=== PATIENT | male | born 1970 | race Caucasian/White ===

== ENCOUNTER → 2017-09-02 | Outpatient (CLI) | payer BC | END | disposition home or self-care (01) | LOC: C.LAB1850 13:45 | PROVIDERS: ATTEND Internal Medicine Endocrinology, Diabetes & Metabolism | DX: E06.3 Autoimmune thyroiditis (principal); E03.9 Hypothyroidism, unspecified ==

== ENCOUNTER 2019-09-11 17:29 | Inpatient (IN) ==
[2019-09-11] MEDS ORDERED: ONDANSETRON INJ 2 MG/ML 2 ML VIAL IV STA (18:00)
[2019-09-11] MEDS ORDERED: CYCLOBENZAPRINE HCL 10 MG TAB PO STA (18:00)
[2019-09-11] MEDS ORDERED: DEXAMETHASONE **PF** INJ 10 MG/ML VIAL IV ONE (18:00)
[2019-09-11] MEDS ORDERED: KETOROLAC TROMETHAMINE 15 MG/ML VIAL IV STA (18:00)
[2019-09-11] MEDS ORDERED: ACETAMINOPHEN 500 MG TAB PO STA (18:01)
--- NOTE | 2019-09-11 18:07 | Emergency Department Note ---
Impression & Plan Low back pain radiating to left leg, Hip pain, left, Lumbar disc herniation ED Provider Note NAME: MI JUNE AGE: 48 SEX: M : 1970 ARRIVES VIA: Walk-In INFORMANT: [Patient] ED PROVIDER(S): [Gwyn Figueroa MD] CHIEF COMPLAINT: Back and hip pain. HISTORY OF PRESENT ILLNESS: The patient is a 48-year-old male who presents with about 24 or so hours of left back and left hip pain. The pain is a 10/10 when he attempts to walk. The patient states standing straight also makes the pain worse. Sitting still and hunching forward makes the pain better. The patient denies any numbness or tingling in the leg. He has no difficulty urinating or moving his bowels. There has been no fever, chills, cough or congestion. Patient states that he has known disc disease at L3 and L4 but mostly of the time, his pain is on the right. He received his third lumbar injection just 6 days ago. He is scheduled to see a surgeon in a month or so. The patient admits to taking a bike ride yesterday, initially after the ride he felt fine, 3 hours later the left back and hip pain began. He has been trying Aleve and ibuprofen for the pain without relief. The patient is concerned that something changed suddenly and that he may now in fact need surgery. Of note, the patient does not have any weakness in the leg, he just has the pain. He is currently on gabapentin for his back issues and right hip pain. The patient states that he has used steroids in the past with some relief. REVIEW OF SYSTEMS: See HPI for pertinent positives and negatives. A total of ten systems were reviewed and were otherwise negative. PMHx/PSHx: See Below SOCIAL HISTORY: See Below. PHYSICAL EXAM: GENERAL: Patient is in no acute distress. HEENT: No acute trauma, normocephalic atraumatic, mucous membranes moist, no nasal congestion, no scleral icterus. NECK: No stridor, no adenopathy, no meningismus, trachea is midline. LUNGS: Clear to auscultation bilaterally, no wheeze, no rhonchi, breath sounds equal. HEART: Without murmurs gallops or rubs, regular rate and rhythm. ABDOMEN: Soft, nontender, bowel sounds positive, no hernias, no peritonitis. EXTREMITIES: No cyanosis or edema, full range of motion of all the joints without pain or difficulty, no signs for acute trauma. NEUROLOGIC: Oriented x 3, no acute motor or sensory deficits, no focal weakness. Patient has strong great toe strength bilaterally. He has equal and strong bilateral plantar flexion. He has 2/4 reflexes of the right Achilles and patella. The left Achilles has a 2/4 reflex. I cannot elicit any left patellar reflex. SKIN: No rash, no jaundice, no diaphoresis. DIFFERENTIAL DIAGNOSIS: Musculoskeletal, disc herniation, fracture, metastatic disease, cord compress ion, discitis, sciatica, cauda equina, infection, aortic disease, renal colic, gastrointestinal, as well as other pathologies. EMERGENCY DEPARTMENT COURSE/PROCEDURES: MEDICAL DECISION MAKING: The patient presents with left lower back pain and left hip pain. He did not have a left patellar reflex. The patient was quite uncomfortable. The patient was given IV Tylenol, oral Flexeril, IV Decadron, IV Toradol, IV morphine and IV Zofran. He was eventually given IV Dilaudid. It was a very hard to control his pain. An MRI of the lumbar spine was done, there was a very large disc herniation on the left that was thought to be the cause of his pain. The herniation was at the level of L4-L5. I did speak with the back surgeon financial institution branch manager. The patient is going to be hospitalized for pain control and potentially undergo an operation within the next 24 hours. Emergent intervention this evening was not felt warranted. I spoke to the patient about his findings, he did consent to a hospital stay and surgical consult. He is currently more comfortable than when he arrived. I spoke to case management, the on-call hospitalist has been consulted. Basic laboratory testing was ordered. There was no leukocytosis or anemia, no significant electrolyte abnormality or kidney failure. Past Med/Surg History Medical History Lower back pain Social History Preferred Language: Indonesian Communication Ability: Effective Chip Bin Operator Required: No Beliefs That Will Affect Care: None Current Living Situation: Family Other Information That Helps Us Care for You: No Feels Safe at Home: Yes Safety Concerns: Feels Safe At This Time Smoking Status: Never smoker Hx Alcohol Use: Yes Alcohol type: beer Hx Substance Use: No Allergies Allergies Allergy/AdvReac Type Severity Reaction Status Date / Time No Known Allergies Allergy Verified 09/11/19 18:53 Home Meds Home Medications Medication Instructions Recorded Confirmed gabapentin 300 mg PO AMHS 09/11/19 09/11/19 Results & Data (ED) Vital Signs Vital Signs - 24 hr 09/11/19 17:31 09/11/19 19:11 09/11/19 20:17 Temperature 36.7 C Temperature Source Oral Pulse Rate 81 Pulse Rate [Finger] 80 89 Pulse Rhythm Regular Pulse Strength Normal Respiratory Rate 16 16 18 Respiratory Effort / Characteristics Non-Labored Non-Labored Respiratory Depth Normal Normal Respiratory Pattern Regular Blood Pressure 154/83 H Blood Pressure [Right Arm] 143/83 H 165/101 H Blood Pressure Mean 106 Blood Pressure Mean [Right Arm] 103 122 Blood Pressure Position Sitting Pulse Oximetry 100 98 98 Oxygen Delivery Method Room Air Room Air Room Air Sepsis Recent Fever Within 48 Hours No Sepsis New/Unexplained Change in Mental Status No Sepsis Action Taken by Nursing No Action Required Home Medications Current Medication List: was personally reviewed by me Laboratory Data Attestation: I reviewed the patient's lab results. Result diagrams: 09/11/19 21:14 09/11/19 21:14 Lab Results 09/11/19 09/11/19 Range/Units 21:14 21:14 WBC 7.57 (4.8-10.8) K/uL RBC 5.21 (4.7-6.1) M/uL Hgb 15.5 (14.0-18.0) g/dL Hct 46.3 (42-52) % MCV 88.9 (80-100) fL MCH 29.8 (25-34) pg MCHC 33.5 (32-36) g/dL RDW Std Deviation 50.0 H (36.4-46.3) fL RDW Coeff of Griselda 15.3 H (11.5-14.5) % Plt Count 217 (130-400) K/uL MPV 9.1 (7.4-10.4) fL Sodium 141 (136-145) mmol/L Potassium 4.3 (3.5-5.1) mmol/L Chloride 106 (98-107) mmol/L Carbon Dioxide 27 (21-32) mmol/L Anion Gap 8.0 (3-11) BUN 22 H (7-18) mg/dl Creatinine 1.18 (0.6-1.4) mg/dl Est Cr Clr Drug Dosing Not Reportable Est GFR ( Amer) 82.9 Est GFR (Non-Af Amer) 71.5 BUN/Creatinine Ratio 18.3 (10-20) Glucose 101 H (70-99) mg/dl Calcium 8.9 (8.5-10.1) mg/dl Administered Medications Hydromorphone HCl (Dilaudid) 0.5 mg IV Q3H PRN PRN Reason: Pain Stop: 09/25/19 22:24 Last Admin: 09/11/19 22:52 Dose: 0.5 mg Documented by: [id number] Sodium Chloride (Nss 1000ml) 1,000 mls @ 125 mls/hr IV .Q8H LINDA Stop: 10/11/19 22:24 Last Admin: 09/11/19 22:40 Dose: 125 mls/hr Documented by: [id number] Discontinued Medications Acetaminophen (Tylenol) 1,000 mg PO NOW STA Stop: 09/11/19 18:02 Last Admin: 09/11/19 18:12 Dose: 1,000 mg Documented by: [id number] Cyclobenzaprine HCl (Flexeril) 10 mg PO NOW STA Stop: 09/11/19 18:01 Last Admin: 09/11/19 18:13 Dose: 10 mg Documented by: [id number] Dexamethasone Sodium Phosphate (Decadron Pf) 10 mg IV NOW ONE Stop: 09/11/19 18:01 Last Admin: 09/11/19 18:18 Dose: 10 mg Documented by: [id number] Hydromorphone HCl (Dilaudid) 1 mg IV NOW STA Stop: 09/11/19 19:29 Last Admin: 09/11/19 19:42 Dose: 1 mg Documented by: [id number] Ketorolac Tromethamine (Toradol) 15 mg IV NOW STA Stop: 09/11/19 18:01 Last Admin: 09/11/19 18:18 Dose: 15 mg Documented by: [id number] Morphine Sulfate (Morphine Sulfate) 4 mg IV Q30M PRN PRN Reason: Pain Stop: 09/25/19 17:59 Last Admin: 09/11/19 22:12 Dose: 4 mg Documented by: [id number] Admin: 09/11/19 19:12 Dose: 4 mg Documented by: [id number] Admin: 09/11/19 18:23 Dose: 4 mg Documented by: [id number] Ondansetron HCl (Zofran) 4 mg IV NOW STA Stop: 09/11/19 18:01 Last Admin: 09/11/19 18:13 Dose: 4 mg Documented by: [id number] Imaging Data Radiologist's Impression: MR lumbar spine wo con CLINICAL HISTORY: 48 years-old Male with left hip and leg pain, lost knee reflex. Acute low back pain with radiation into the left lower extremity. No reported trauma. COMPARISON: None. TECHNIQUE: Multiplanar, multi sequence MRI of the lumbar spine was performed without intravenous contrast. FINDINGS: Study is motion degraded. No aortic aneurysm or adenopathy. Paraspinal tissues are unremarkable. Clutch Specialist localizer images demonstrate no gross extra spinal abnormality. 18 degrees levoscoliosis measured from L2-L4. 8 mm anterolisthesis L3 on L4. Chronic appearing right L3 pars defect, image 8 series 5. No definitive left-sided pars defects identified. No acute fracture, subluxation, bone marrow or soft tissue edema. Moderate left facet effusion at L3-L4. Signal within the imaged thoracic spinal cord is unremarkable. Conus medullaris terminates at T12-L1. Cauda equina appears unremarkable. Minimal endplate edema at L3-L4 suggest Modic type I endplate degeneration. T12-L1: Moderate facet arthrosis. No central canal or foraminal narrowing. L1-L2: Mild disc space narrowing with spondylitic spurring, small posterior annular disc bulge with moderate facet arthrosis and ligamentum flavum thickening. No central canal or foraminal narrowing. L2-L3: Mild disc space narrowing with spondylitic spurring, circumferential annular disc bulge with moderate facet arthrosis and ligamentum flavum thickening. Flattening of the ventral thecal sac without significant central canal stenosis. Neuroforamina are generally patent. L3-L4: Mild to moderate disc space narrowing with spondylitic spurring and anterolisthesis as above. Circumferential annular disc bulge with posterior disc uncovering. There is a central annular fissure with small central disc protrusion. Moderate facet arthrosis with ligamentum flavum thickening and moderate left facet effusion. Severe central canal stenosis, AP dimension of the thecal sac measuring 5 mm. Severe narrowing of the lateral recesses, right greater than left. Severe right foraminal narrowing with mild to moderate left foraminal stenosis. L4-L5: Mild spondylitic spurring with small posterior annular disc bulge, mode rate to severe facet arthrosis with ligamentum flavum thickening. Left foraminal/extraforaminal annular fissure with disc protrusion measuring up to 1.5 cm transversely, image 23 series 8. Central canal is patent. Mild to moderate right and moderate left foraminal narrowing. Edema is noted within the left neuroforamen. L5-S1: Spondylitic spurring with small circumferential annular disc bulge, li gament of flavum thickening with severe facet arthrosis and trace facet effusions. Small central disc protrusion. Central canal is patent. Mild foraminal narrowing present bilaterally. IMPRESSION: 1. Motion degraded exam. 2. No acute fracture, or subluxation. 3. Remote appearing right-sided L3 pars defect with 8 mm anterolisthesis L3 on L4. Additionally, combination of discogenic degeneration and facet arthrosis at this interspace contributes to severe central canal stenosis with severe right and mild to moderate left foraminal narrowing. 4. Left foraminal/extraforaminal annular fissure and disc protrusion at L4-L5 is noted with adjacent soft tissue edema suggestive of acute inflammation. This results in mild to moderate right and moderate left foraminal narrowing. 5. 18 degrees levoscoliosis measured from L2-L4. Blood Pressure Blood Pressure Findings: Elevated blood pressure Blood Pressure Disposition: further management by hospitalist Discharge Plan Visit Data *Final* Discharge Date/Time: 09/11/19 22:14 Chief Complaint: Hip Pain Stated Complaint: PAIN SHOOTING INTO HIP, CANT PUT PRESSURE ON LEGS ED Provider: Gwyn Figueroa Discharge Problem: Low back pain radiating to left leg, Hip pain, left, Lumbar disc herniation Patient Disposition: Admitted As Inpatient Condition: Good Discharge Instructions Interventions: ED Discharge Assessment Last Done: 09/11/19 22:14
[2019-09-11] MEDS: MoRPHine SULFATE 4 MG/ML 1 ML CARP\\VIAL IV PRN ×3 (18:23→22:12)
[2019-09-11] MEDS ORDERED: HYDROmorphone INJ 1 MG/ML SYRINGE IV STA (19:28)
--- NOTE | 2019-09-11 20:38 | Magnetic Resonance Report ---
MR lumbar spine wo con CLINICAL HISTORY: 48 years-old Male with left hip and leg pain, lost knee reflex. Acute low back angelica n with radiation into the left lower extremity. No reported trauma. COMPARISON: None. TECHNIQUE: Multiplanar, multi sequence MRI of the lumbar spine was performed without intravenous cont rast. FINDINGS: Study is motion degraded. No aortic aneurysm or adenopathy. Paraspinal tissues are unremarkable. Scou t localizer images demonstrate no gross extra spinal abnormality. 18 degrees levoscoliosis measured f rom L2-L4. 8 mm anterolisthesis L3 on L4. Chronic appearing right L3 pars defect, image 8 series 5. N o definitive left-sided pars defects identified. No acute fracture, subluxation, bone marrow or soft tissue edema. Moderate left facet effusion at L3-L4. Signal within the imaged thoracic spinal cord is unremarkable. Conus medullaris terminates at T12-L1. Cauda equina appears unremarkable. Minimal endp late edema at L3-L4 suggest Modic type I endplate degeneration. T12-L1: Moderate facet arthrosis. No central canal or foraminal narrowing. L1-L2: Mild disc space narrowing with spondylitic spurring, small posterior annular disc bulge with moderate facet arthrosis and ligamentum flavum thickening. No central canal or foraminal narrowing. L2-L3: Mild disc space narrowing with spondylitic spurring, circumferential annular disc bulge with moderate facet arthrosis and ligamentum flavum thickening. Flattening of the ventral thecal sac witho ut significant central canal stenosis. Neuroforamina are generally patent. L3-L4: Mild to moderate disc space narrowing with spondylitic spurring and anterolisthesis as above. Circumferential annular disc bulge with posterior disc uncovering. There is a central annular fissur e with small central disc protrusion. Moderate facet arthrosis with ligamentum flavum thickening and moderate left facet effusion. Severe central canal stenosis, AP dimension of the thecal sac measuring 5 mm. Severe narrowing of the lateral recesses, right greater than left. Severe right foraminal narr owing with mild to moderate left foraminal stenosis. L4-L5: Mild spondylitic spurring with small posterior annular disc bulge, moderate to severe facet a rthrosis with ligamentum flavum thickening. Left foraminal/extraforaminal annular fissure with disc p rotrusion measuring up to 1.5 cm transversely, image 23 series 8. Central canal is patent. Mild to mo derate right and moderate left foraminal narrowing. Edema is noted within the left neuroforamen. L5-S1: Spondylitic spurring with small circumferential annular disc bulge, ligament of flavum thicke sohail with severe facet arthrosis and trace facet effusions. Small central disc protrusion. Central ca nal is patent. Mild foraminal narrowing present bilaterally. IMPRESSION: 1. Motion degraded exam. 2. No acute fracture, or subluxation. 3. Remote appearing right-sided L3 pars defect with 8 mm anterolisthesis L3 on L4. Additionally, comb ination of discogenic degeneration and facet arthrosis at this interspace contributes to severe centr al canal stenosis with severe right and mild to moderate left foraminal narrowing. 4. Left foraminal/extraforaminal annular fissure and disc protrusion at L4-L5 is noted with adjacent soft tissue edema suggestive of acute inflammation. This results in mild to moderate right and modera te left foraminal narrowing. 5. 18 degrees levoscoliosis measured from L2-L4. ACT 112: Negative or not required by law. The above report was generated using voice recognition software. It may contain grammatical, syntax o r spelling errors. Electronically signed by: Raul Chan M.D. 09/11/2019 8:37 PM
[2019-09-11 21:28] LABS: Hematocrit (blood only) 46.3 % (42-52); Hemoglobin 15.5 g/dL (14.0-18.0); Mean Corpuscular Hemoglobin 29.8 pg (25-34); Mean Corpuscular Hgb Conc 33.5 g/dL (32-36); Mean Corpuscular Volume 88.9 fL (80-100); Mean Platelet Volume 9.1 fL (7.4-10.4); Platelet Count 217 K/uL (130-400); RDW Coefficient of Variation 15.3 % (11.5-14.5); Red Blood Count 5.21 M/uL (4.7-6.1); White Blood Count 7.57 K/uL (4.8-10.8)
[2019-09-11 21:58] LABS: BUN Creatinine Ratio 18.3 (10-20); Blood Urea Nitrogen 22 mg/dl (7-18); Calcium 8.9 mg/dl (8.5-10.1); Carbon Dioxide 27 mmol/L (21-32); Chloride 106 mmol/L (98-107); Est GFR (African American) 82.9; Est GFR (Non-African American) 71.5; Glucose 101 mg/dl (70-99); Potassium 4.3 mmol/L (3.5-5.1); Sodium 141 mmol/L (136-145)
--- NOTE | 2019-09-11 22:17 | History and Physical Report ---
DATE OF ADMISSION: 09/11/2019 CHIEF COMPLAINT: Severe back pain. HISTORY OF PRESENT ILLNESS: This is a 48-year-old male with no significant past medical history except for chronic back pain, lumbar stenosis and since April he has also had 4-5 steroid shots because of back pain mostly radiating to the right side. After biking yesterday, the pain started to radiate to the left side. Last steroid was last Thursday.But this time the pain was more on the left leg and he is not able to put weight on the leg and he is not able to lie down straight, so he came to the ER and lumbar spine MRI was done which shows remote appearing right sided L3 pars defect with 8 mm anterolisthesis L3 and L4 with severe central canal stenosis, severe right and mid mild to moderate left foraminal narrowing and also disc protrusion at L4-L5. The patient required significant pain medication in the ER.Denies any other complaints. No headache, no dizziness, no blurred vision, no earache, no runny nose, no sore throat, no dysphagia, no cough. Appetite is okay and was not sleeping well since yesterday night because of his pain. No fever, no chills, no cough, no chest pain, no shortness of breath, no nausea, no abdominal pain. Normal bowel and bladder movements. No incontinence of bowel and bladder. No hematuria, no blood in the stools or black stools. No swelling in the legs, no rash. Hemodynamically stable. ALLERGIES: No known drug allergies. PAST MEDICAL HISTORY: As mentioned above. PAST SURGICAL HISTORY: Appendectomy, cholecystectomy, colectomy for diverticulitis, knee surgeries. MEDICATIONS: Currently on gabapentin 300 mg p.o. b.i.d. FAMILY HISTORY: Mother had high blood pressure, father was diagnosed with diabetes in his old age. SOCIAL HISTORY: No smoking history. No alcohol, no drug use. Lives with his . REVIEW OF SYMPTOMS: As per HPI. Rest of review of systems negative. PHYSICAL EXAMINATION: GENERAL: The patient is of moderate build, not in acute distress. VITAL SIGNS: Temperature 36.7, pulse 89, respiratory rate 18, blood pressure 165/101, oxygen 98% room air. HEENT: No pallor, no icterus. Pupils equal, round, and reactive to light. Oral mucosa moist. NECK: Supple. No neck masses seen. CARDIOVASCULAR: S1, S2 heard, regular rate and rhythm, no murmur, no gallop. RESPIRATORY SYSTEM: Normal AP diameter. No accessory muscle use. No wheezing, no crackles. ABDOMEN: Soft, bowel sounds present. Nontender. No distention. CENTRAL NERVOUS SYSTEM: Alert and oriented. Obeys simple commands. Moves extremities. EXTREMITIES: No edema, no erythema. MUSCULOSKELETAL: Left leg straight leg test positive. LABORATORY DATA: WBC 7.5, hemoglobin 15.5, hematocrit 46.3, platelets 217. Electrolytes pending. Lumbar spine MRI, no acute fracture or subluxation, remote appearing right side L3 pars defect with 8 mm anterolisthesis of L3 and L4, severe central canal stenosis with severe right and mild to moderate left foraminal narrowing, left extraforaminal annular fissure and disc protrusion at L4-L5 is noted with adjacent soft tissue edema suggestive of acute inflammation. This results in mild to moderate right and moderate left foraminal narrowing, 18-degree levoscoliosis measured from L2-L4. ASSESSMENT AND PLAN: This is a 48-year-old male who presents with severe back pain and found to have acute L4-L5 disc protrusion. 1. Severe back pain, ambulatory dysfunction, unable to lie flat, not able to put weight on left leg. MRI showing acute L4-L5 disc protrusion with acute inflammation. Received dexamethasone, cyclobenzaprine, morphine, ketorolac and Dilaudid in the ER. ER physician talked to orthopedics. There is plan for consideration of surgery tomorrow. We will admit the patient to medical floor. Keep him n.p.o., IV fluids, IV Dilaudid p.r.n. We will get a preoperative EKG and chest x-ray and follow the electrolytes. If labs, EKG and chest x-ray are okay, patient will be at acceptable risk for any procedure. Continue his home gabapentin. 2. Deep venous thrombosis prophylaxis, sequential compression devices for now. 3. Disposition: Observation in medical floor. Expect to discharge home and follow with family doctor. PT and OT prior to discharge. Social Service to help with discharge planning. CODE STATUS: Full code. MTDD
[2019-09-11] MEDS ORDERED: HYDROmorphone INJ 0.5 MG/0.5 ML SYR IV PRN (22:25)
[2019-09-11] MEDS ORDERED: ONDANSETRON INJ 2 MG/ML 2 ML VIAL IV PRN (22:25)
[2019-09-11] MEDS ORDERED: POLYETHYLENE (MIRALAX) 17 GM PACK PO PRN (22:25)
[2019-09-11] MEDS: SODIUM CHLORIDE 0.9% 1000ML 1,000 ML IV SCH (22:40)
--- NOTE | 2019-09-11 22:47 | XRay Report ---
XR chest 1V portable HISTORY: 48 years-old Male pre op preoperative exam. No acute chest complaints COMPARISON: MRI lumbar spine of same day TECHNIQUE: AP view of the chest FINDINGS: Cardiomediastinal and hilar silhouettes are within normal limits. No pneumothorax, pleural effusion, airspace consolidation or overt pulmonary edema. Bones of the chest appear grossly intact. IMPRESSION: No acute process. ACT 112: Negative or not required by law. The above report was generated using voice recognition software. It may contain grammatical, syntax o r spelling errors. Electronically signed by: Raul Chan M.D. 09/11/2019 10:46 PM
[2019-09-12] MEDS: HYDROmorphone INJ 1 MG/ML SYRINGE IV PRN ×7 (01:26→21:43)
[2019-09-12] MEDS: ACETAMINOPHEN 325 MG TAB PO PRN ×3 (03:16→19:32)
[2019-09-12 05:59] LABS: Hematocrit (blood only) 43.7 % (42-52); Hemoglobin 14.4 g/dL (14.0-18.0); Immature Granulocytes # (auto) 0.01 K/uL (0.00-0.02); Immature Granulocytes % (auto) 0.1 %; Lymphocytes # (auto) 0.81 K/uL (1.2-3.4); Lymphocytes % (auto) 8.1 %; Mean Corpuscular Hemoglobin 29.3 pg (25-34); Monocytes # (auto) 0.16 K/uL (0.11-0.59); Monocytes % (auto) 1.6 %; Neutrophils # (auto) 9.03 K/uL (1.4-6.5); Neutrophils % (auto) 90.2 %; Platelet Count 200 K/uL (130-400); RDW Coefficient of Variation 15.3 % (11.5-14.5); RDW Standard Deviation 49.4 fL (36.4-46.3); Red Blood Count 4.91 M/uL (4.7-6.1); White Blood Count 10.01 K/uL (4.8-10.8)
[2019-09-12] MEDS: SODIUM CHLORIDE 0.9% 1000ML 1,000 ML IV SCH ×3 (06:33→21:42)
[2019-09-12 06:38] LABS: BUN Creatinine Ratio 19.5 (10-20); Calcium 8.3 mg/dl (8.5-10.1); Est GFR (African American) 89.3; Magnesium 1.9 mg/dl (1.8-2.4); Potassium 4.8 mmol/L (3.5-5.1)
--- NOTE | 2019-09-12 07:54 | Orthopedic Consultation ---
Date of Consultation September 12, 2019 Assessment & Plan (1) Lumbar disc herniation with radiculopathy: At this time the patient has previous issues with L3-L4 stenosis and instability and chronic persistent right leg pain. He now has acute pain involving the left lower extremity secondary to foraminal disc herniation. Secondary to his weakness and significant pain we are recommending urgent lumbar decompression and fusion L3-4 and L4-5 to adequately decompress the nerve roots improve his pain and hopefully avoid permanent strength deficit and neurologic sequela. Risk benefits pros cons and alternatives were outlined in detail. At this time we will try to surgery range performed soon as possible. Present on Admission?: Yes History of Present Illness Reason for Consultation: Severe back and bilateral leg pain with weakness Attending Physician: Jayson Soto MD History of Present Illness This is a 48-year-old male that presents with severe left leg pain. This began Thursday and progressed throughout Thursday. He subsequently came to the emergency room with the inability to ambulate and to be in severe pain. He does have a history of significant right leg pain that he is undergone several epidural injections for in the past. He has a known spondylolisthesis at L3-L4 with neuroforaminal disease. He now has acute left-sided symptoms rating into the buttock and thigh. He is unable to contract his quadricep he is unable to ambulate secondary to the pain. He denies any loss of bowel bladder function. Allergies Allergy/AdvReac Type Severity Reaction Status Date / Time No Known Allergies Allergy Verified 09/11/19 18:53 Home Medications Home Medications Medication Instructions Recorded Confirmed Type gabapentin 300 mg PO AMHS 09/11/19 09/11/19 History Patient History Medical History Lower back pain Social History Preferred Language: Korean Communication Ability: Effective Interface Control Officer Required: No Beliefs That Will Affect Care: None Current Living Situation: Family Other Information That Helps Us Care for You: No Feels Safe at Home: Yes Safety Concerns: Feels Safe At This Time Smoking Status: Never smoker Hx Alcohol Use: Yes Alcohol type: beer Hx Substance Use: No Physical Exam Physical Exam: Patient is alert and oriented Patient is most comfortable sitting and leaning forward. He is in obvious distress. He exhibits significant tension signs with straight leg raising on the left. He has 3/4 left quadriceps with breakaway weakness. Plantar flexion dorsiflexion appears to be symmetric and intact bilateral extremities. He has absent deep tendon reflexes on the left. Sensory is hyperesthetic on the left compared to the right. Heart is regular rate and rhythm Lungs clear to auscultation Results & Data ([facility]) Vital Signs (Past 12 Hours) Vital Signs Temp Pulse Resp BP Pulse Ox 09/11/19 23:00 36.7 C 67 14 118/69 96 09/11/19 22:35 36.8 C 67 16 143/79 H 98 09/11/19 22:20 36.7 C 67 16 143/79 H 98 09/11/19 22:11 79 16 129/75 98 09/11/19 20:17 89 18 165/101 H 98 Diagnostic Findings MRI of the lumbar spine demonstrates evidence of spondylolisthesis with severe central lateral recess stenosis and foraminal disease L3-L4. He has evidence of far lateral disc herniation L4-L5 with displacement of the exiting nerve root on the left. There is obvious annular disruption.
[2019-09-12] MEDS: GABAPENTIN 300 MG CAP PO SCH ×2 (09:01→20:10)
--- NOTE | 2019-09-12 14:26 | Hospitalist Progress Note ---
Date of Service September 12, 2019 Assessment & Plan (1) Lumbar disc herniation with radiculopathy: Has been complaining of low back pain with radiculopathy for a while Has had multiple injections without any improvement as an outpatient MRI did show MRI did show discogenic degeneration and annular fissure with surrounding edema with mild to moderate left and right foraminal narrowing Appreciate Ortho input and recommendation for surgery Denies any significant cardiac or respiratory symptoms with exertion EKG and chest x-ray are unremarkable There is no contraindication for surgery and does not carry any extra risk of the procedure Likely surgery tomorrow (2) Hip pain, left: Has radiculopathy pain around left hip (3) Lumbar disc herniation: As above DVT prophylaxis-as per Ortho CODE STATUS Full Admission and Anticipated Discharge Date Admission Date: September 12, 2019 Subjective 09/12/2019 The patient was seen and examined in medical floor He has been complaining of chronic back pain with radiculopathy He is a status post multiple injection without any improvement He does have significant disc protrusion and will have surgery tomorrow Denies any urine and her bowel problems Review of Systems Review of Systems: All systems reviewed and are unremarkable except as noted below Musculoskeletal: Back pain with radiation around the left buttock and right leg Physical Exam Physical Exam: Lying in bed without any acute symptoms Constitutional: well developed and well nourished; no acute distress and not ill appearing Eyes: PERRL, conjunctivae normal, anicteric sclerae ENMT: external ear and nose normal, oropharynx normal Neck: trachea midline, no thyromegaly Respiratory: normal respiratory effort; no respiratory distress Auscultation: lungs clear to auscultation bilaterally Cardiovascular: Rate/Rhythm: regular rate and regular rhythm Heart Sounds: no murmur Gastrointestinal (Abdomen): Inspection/Auscultation: abdomen normal to inspection and normal bowel sounds Percussion/Palpation: abdomen soft; abdomen nontender Musculoskeletal: No acute arthritis in any joints Lymphatic: no cervical or axillary lymphadenopathy Results & Data Results & Data ([facility]) Vital Signs (Past 12 Hours) Vital Signs Temp Pulse Resp BP Pulse Ox 09/12/19 07:15 36.9 C 77 18 112/74 97 Laboratory Results Short CBC 09/11/19 09/12/19 Range/Units 21:14 05:43 WBC 7.57 10.01 (4.8-10.8) K/uL Hgb 15.5 14.4 (14.0-18.0) g/dL Hct 46.3 43.7 (42-52) % Plt Count 217 200 (130-400) K/uL BMP 09/11/19 09/12/19 21:14 05:43 Sodium 141 141 Potassium 4.3 4.8 Chloride 106 108 H Carbon Dioxide 27 27 BUN 22 H 22 H Creatinine 1.18 1.11 Glucose 101 H 126 H Calcium 8.9 8.3 L Medications Administered Current Inpatient Medications Acetaminophen (Tylenol) 650 mg PO Q4H PRN PRN Reason: pain/fever Stop: 10/11/19 22:24 Last Admin: 09/12/19 09:04 Dose: 650 mg Documented by: Gabapentin (Neurontin) 300 mg PO AMHS LINDA Stop: 10/12/19 08:59 Last Admin: 09/12/19 09:01 Dose: 300 mg Documented by: Hydromorphone HCl (Dilaudid) 1 mg IV Q3H PRN PRN Reason: Pain Stop: 09/26/19 01:20 Last Admin: 09/12/19 11:11 Dose: 1 mg Documented by: Sodium Chloride (Nss 1000ml) 1,000 mls @ 125 mls/hr IV .Q8H LINDA Stop: 10/11/19 22:24 Last Infusion: 09/12/19 06:42 Dose: 125 mls/hr Documented by: Ondansetron HCl (Zofran) 4 mg IV Q6H PRN PRN Reason: Nausea Stop: 10/11/19 22:24 Polyethylene Glycol (Miralax Powder Packet) 17 gm PO DAILY PRN PRN Reason: Constipation Stop: 10/11/19 22:24
--- NOTE | 2019-09-12 15:06 | Anesthesiology Consultation ---
Date of Service September 12, 2019 Assessment & Plan (1) Encounter for pre-operative examination: Chart Review Chart Review: Acceptable Risk for Surgery and Patient NOT seen in Pre Admission Testing Consults Requested none Hospitalist 09/12/2019: There is no contraindication for surgery and does not carry any extra risk of the procedure History Surgery Operation Date: 09/13/19 07:30 Proposed Procedures p L3-L4, L4-L5 Decompression and Fusion - Nafi Quan DO Height/Weight Height: 5 ft 8 in Weight: 76.1 kg Allergies Allergy/AdvReac Type Severity Reaction Status Date / Time No Known Allergies Allergy Verified 09/11/19 18:53 Medications Home Medications Medication Instructions Recorded Confirmed Last Taken gabapentin 300 mg PO AMHS 09/11/19 09/11/19 Unknown Active Medications Generic Name Dose Route Start Last Admin Trade Name Freq PRN Reason Stop Dose Admin Acetaminophen 650 mg 09/11/19 22:25 09/12/19 09:04 Tylenol PO 10/11/19 22:24 650 mg Q4H PRN Administration pain/fever Gabapentin 300 mg 09/12/19 09:00 09/12/19 09:01 Neurontin PO 10/12/19 08:59 300 mg AMHS LINDA Administration Hydromorphone HCl 1 mg 09/12/19 01:21 09/12/19 11:11 Dilaudid IV 09/26/19 01:20 1 mg Q3H PRN Administration Pain Sodium Chloride 1,000 mls @ 125 mls/hr 09/11/19 22:25 09/12/19 15:05 Nss 1000ml IV 10/11/19 22:24 125 mls/hr .Q8H LINDA Administration NPO Date Last Intake of Fluids: 09/11/19 Time Last Intake of Fluids: 23:59 Date Last Intake of Solids: 09/11/19 Time Last Intake of Solids: 23:59 Past Medical History Medical History (Updated 09/12/19 @ 15:06 by Ag Chavis MD) Lower back pain Past Surgical History Surgical History (Updated 09/12/19 @ 15:05 by Ag Chavis MD) History of appendectomy History of colectomy Hx laparoscopic cholecystectomy Social History Smoking Status: Never smoker Hx Alcohol Use: Yes Alcohol type: beer alcohol intake frequency: holidays/special occasions only Hx Substance Use: No Physical Exam Vital Signs Last Vital Signs Temp 36.9 C 09/12/19 07:15 Pulse 77 09/12/19 07:15 Resp 18 09/12/19 07:15 BP 112/74 09/12/19 07:15 Pulse Ox 97 09/12/19 07:15 Testing Laboratory Results 09/12/19 05:43 09/12/19 05:43 Blood Type B Positive 09/12/19 13:07 Antibody Screen NEGATIVE 09/12/19 13:07 Electrocardiogram Date: 09/12/19 Findings: + NSR @ (68) Sinus rhythm with 1st degree A-V block Possible Left atrial enlargement Borderline ECG No previous ECGs available
--- NOTE | 2019-09-12 16:58 | Electrocardiogram Report ---
Test Reason : Blood Pressure : / mmHG Vent. Rate : 068 BPM Atrial Rate : 068 BPM P-R Int : 212 ms QRS Dur : 086 ms QT Int : 400 ms P-R-T Axes : 080 063 062 degrees QTc Int : 425 ms Sinus rhythm with 1st degree A-V block Possible Left atrial enlargement Borderline ECG No previous ECGs available Confirmed by William Mott ([id number]) on 09/12/2019 4:58:12 PM Referred By: REFERRED SELF Confirmed By:Terrell Mott
[2019-09-12] MEDS ORDERED: HYDROmorphone INJ 0.5 MG/0.5 ML SYR IV STA (19:37)
[2019-09-13] MEDS: ACETAMINOPHEN 325 MG TAB PO PRN (00:30)
[2019-09-13] MEDS: HYDROmorphone INJ 1 MG/ML SYRINGE IV PRN ×14 (00:46→11:37)
[2019-09-13] MEDS ORDERED: HYDROmorphone INJ 0.5 MG/0.5 ML SYR IV STA ×2 (01:44→05:16)
[2019-09-13] MEDS ORDERED: HYDROmorphone INJ 0.5 MG/0.5 ML SYR ONE ×2 (01:48→05:24)
[2019-09-13] MEDS: SODIUM CHLORIDE 0.9% 1000ML 1,000 ML IV SCH (05:00)
[2019-09-13] MEDS ORDERED: fentaNYL citrate 100 MCG/2 ML VIAL ONE (06:47)
[2019-09-13] MEDS ORDERED: MIDAZOLAM HCL 1 MG/ML 2ML VIAL ONE (06:47)
[2019-09-13] MEDS ORDERED: GLYCOPYRROLATE 0.2 MG/ML VIAL ONE (06:47)
[2019-09-13] MEDS ORDERED: LIDOCAINE HCL 2% 2 ML VIAL/AMP(20MG/ML) INFIL ONE (06:47)
[2019-09-13] MEDS ORDERED: PHENYLEPHRINE 100MCG/ML 5ML SYR ONE (06:47)
[2019-09-13] MEDS ORDERED: ONDANSETRON INJ 2 MG/ML 2 ML VIAL ONE (06:47)
[2019-09-13] MEDS ORDERED: NEOSTIGMINE METHYLSULFATE 5 MG/5 ML SYR ONE (06:47)
[2019-09-13] MEDS ORDERED: PROPOFOL IV EMULSION 10 MG/ML 20 ML VIAL IV ONE (06:47)
[2019-09-13] MEDS ORDERED: ePHEDrine sulfate 50 MG/ML SYR ONE (06:47)
[2019-09-13] MEDS ORDERED: DEXAMETHASONE SOD INJ 4 MG/ML VIAL ONE (06:47)
[2019-09-13] MEDS ORDERED: LARYING-O-JET KIT (LTA) ONE (06:47)
[2019-09-13] MEDS ORDERED: ROCURONIUM BROMIDE 10 MG/ML 5 ML VIAL ONE ×2 (06:47→09:04)
[2019-09-13] MEDS ORDERED: BACITRACIN INJ 50,000 UNIT VIAL ONE (06:56)
[2019-09-13] MEDS ORDERED: BUPIVACAINE/EPINEPHRINE 0.25% 1:200,000 30 ML VIAL ONE (06:57)
--- NOTE | 2019-09-13 07:18 | History & Physical Bridge Note ---
Date of Service September 13, 2019 History & Physical Bridge Note I have examined the patient, reviewed the History & Physical and in the interval since the performance of the History & Physical I have noted the following changes of clinical significance: no changes noted
[2019-09-13] MEDS ORDERED: CEFAZOLIN 2000MG 2,000 MG/15 ML SYR IV ONE (07:25)
[2019-09-13] MEDS ORDERED: CEFAZOLIN 2,000 MG/15 ML IV PUSH IV ONE (07:28)
[2019-09-13] MEDS ORDERED: LABETALOL HCL IV 5 MG/ML 20ML IV PRN (07:29)
[2019-09-13] MEDS ORDERED: ATROPINE SULFATE 0.1 MG/ML 10ML SYR IV PRN (07:29)
[2019-09-13] MEDS ORDERED: HYDROmorphone INJ 2 MG/ML SYR/VIAL ONE (08:18)
[2019-09-13] MEDS ORDERED: FLOSEAL HEMOSTATIC MATRIX 10ML TOP ONE (08:44)
--- NOTE | 2019-09-13 10:08 | Operative Report ---
Post Operative Report Pre & Post Diagnosis Operation Date: 09/13/19 07:30 Pre-Op Diagnosis: Spondylolisthesis L3-4 Far lateral disc rotation spinal stenosis L4-5 Post-Op Diagnosis: Same I identified the patient and participated in the time-out.: Yes Procedure Operation Date: 09/13/19 07:30 Actual Procedures #1 lumbar decompression with bilateral medial facetectomies and foraminotomies L3-4 and L4-5 per #2 posterior spinal fusion L3-4 and L4-5 per #3 placement posterior instrumentation L3-4 L4-5. #4 interbody fusion L3-4 L4-5. #5 placement of peek cage 11 x 26 mm L3-4 and 12 x 26 mm at L4-5. #6 placement locally harvested morselized autograft in the posterior gutters per #7 placement infuse collagen sponge, master graft in the posterior gutters and ostial amp and interbody space. Surgeon Naif Quan, Taxation Inspector Farideh Huggins Estimated Blood Loss 200 Findings Consistent with Post-Op Diagnosis Specimens None Indications This is a 48-year-old male with severe spinal stenosis and further discrimination with evidence of neurologic climb. Subsequently he is undergoing urgent surgical intervention. Description of Procedure Patient was met with preoperatively case discussed all questions addressed. The patient was taken back to op suite underwent an patient placed in a prone position the Da table on top Spencer frame. All bony prominences well- padded eyes inspected to ensure no external pressure placed upon. This point the lumbar spine was prepped and draped in a normal sterile fashion. Sharp dissection with the assistance of Bovie cautery was performed down to and exposing the lamina and transverse processes of L3-L4-L5. From a caudal cephalad fashion complete laminectomy of L4 and L3 is performed addressing severe central lateral recess stenosis this included bilateral medial facetectomies and foraminotomies to address all neural compression. This included removal far lateral disc herniatio in the left L4-5 neural foramen. After complete decompression pedicle screws were placed in L3-L4-L5 bilaterally with assistance of fluoroscopy the proper sized yolanda placed. By way of a transforaminal approach on the left complete discectomy of L4-5 was performed endplates coated to subcortical bleeding bone and a 12 x 26 mm peek cage filled with osteo-bone graft tapped in position. Then proceeded to L3-[address] of a transforaminal approach on the right a complete discectomy was performed endplates curetted to subcortical bleeding bone and a 11 x 26 mm peek cage filled with osteo-bone graft tapped in position. The rods were then locked in final position bilaterally. The transverse processes of L3-L4-L5 were then burred to subcortical bleeding bone. Infuse collagen sponge master graft local autograft placed in the posterior gutters. 15 round GERARD drain inserted. The incision was then closed with 1 Vicryl in the fascia 2-0 Vicryl subcutaneously and 4 Monocryl for final skin closure. Steri-Strip sterile dressings placed. Patient waken taken PACU stable addition. Please note spinal cord monitoring was utilized that the procedure no changes noted. Lastly Farideh Huggins was present at the entire procedure involved the patient positioning complex portions of the surgery and final skin closure. I attest to the content of the Intraoperative Record and any orders documented therein. Any exceptions are noted below.
--- NOTE | 2019-09-13 12:01 | Anesthesiology Progress Note ---
Date of Service September 13, 2019 Anesthesia Post Procedure Vital Signs Vital Signs: Temp Pulse Pulse Resp BP Pulse Ox 09/13/19 11:55 76 15 148/76 H 100 09/13/19 11:45 37.2 C 72 14 145/77 H 100 09/13/19 11:35 74 16 143/76 H 100 09/13/19 11:25 74 13 148/78 H 100 09/13/19 11:15 37.0 C 74 15 120/83 09/13/19 11:05 77 18 124/88 09/13/19 10:55 80 13 151/81 H 100 09/13/19 10:45 81 20 151/80 H 100 09/13/19 10:37 36.4 C L 89 15 140/79 09/13/19 07:07 36.8 C 68 16 147/94 H 100 09/13/19 06:46 36.7 C 70 16 154/81 H 100 09/12/19 23:25 37.1 C 70 20 119/72 97 09/12/19 15:20 36.8 C 70 18 127/79 99 Pain Intensity Left Hip: Pain Intensity: 2 Back: Pain Intensity: 5 Transfer of Care Handoff Completed per policy Notes Mental Status: alert / awake / arousable Patient Amnestic to Procedure: Yes Nausea / Vomiting: adequately controlled Pain: adequately controlled Airway Patency, RR, SpO2: stable & adequate BP & HR: stable & adequate Hydration State: stable & adequate Anesthetic Complications: no major complications apparent
[2019-09-13] MEDS ORDERED: ONDANSETRON INJ 2 MG/ML 2 ML VIAL IV PRN (12:10)
[2019-09-13] MEDS ORDERED: ACETAMINOPHEN 1,000 MG/100 ML VIAL IV PRN (12:10)
[2019-09-13] MEDS ORDERED: ONDANSETRON 4 MG OD TAB PO PRN (12:10)
[2019-09-13] MEDS ORDERED: PROMETHAZINE HCL 12.5 MG in SODIUM CHLORIDE 0.9% 50 ML IV PRN (12:10)
[2019-09-13] MEDS ORDERED: NALOXONE HCL 0.4 MG/1 ML VIAL/CARP IV PRN (12:10)
[2019-09-13] MEDS ORDERED: SOD PHOSPHATE/SOD BIPHOSPHATE ENEMA 132 ML BTL PR PRN (12:10)
[2019-09-13] MEDS ORDERED: LACTATED RINGER'S 1,000 ML IV SCH (12:10)
[2019-09-13] MEDS ORDERED: bisacodyL 10 MG SUPP PR PRN (12:10)
[2019-09-13] MEDS ORDERED: LORazepam 0.5 MG/1 ML VIAL IV PRN (12:10)
[2019-09-13] MEDS ORDERED: ALUMINUM/MAGNESIUM SUSP 30 ML UDC PO PRN (12:10)
[2019-09-13] MEDS ORDERED: MAGNESIUM HYDROXIDE SUSP 30 ML UDC PO PRN (12:10)
[2019-09-13] MEDS ORDERED: LORazepam 0.5 MG TAB PO PRN (12:10)
[2019-09-13] MEDS ORDERED: FAMOTIDINE 20 MG TAB PO PRN (12:10)
[2019-09-13] MEDS ORDERED: DO NOT ADMINISTER PNEUMOCOCCAL VACCINE PRN (12:10)
[2019-09-13] MEDS ORDERED: METOCLOPRAMIDE HCL INJ 5 MG/ML 2 ML VIAL IV PRN (12:10)
[2019-09-13] MEDS ORDERED: DO NOT ADMINISTER FLU VACCINE PRN (12:10)
[2019-09-13] MEDS: GABAPENTIN 300 MG CAP PO SCH ×2 (12:14→20:43)
[2019-09-13] MEDS: OXYCODONE HCL IR 5 MG TAB (IMMEDIATE RELEASE) PO PRN ×3 (12:54→21:20)
[2019-09-13] MEDS: KETOROLAC 30 MG/ML VIAL IV SCH ×2 (13:14→20:44)
--- NOTE | 2019-09-13 13:39 | Fluoroscopy Report ---
FL lumbar spine 2-3V CLINICAL HISTORY: L3-L5 DECOMPRESSION AND FUSION COMPARISON STUDY: Lumbar spine MRI September 09, 2019. FLUOROSCOPY TIME: 20.4 seconds. FLUOROSCOPIC IMAGES: 2 FINDINGS: Fluoroscopy was provided for L3-L4 and L4-L5 discectomies with interbody spacer placement. Posterior decompression is noted with bilateral pedicle screws at the L3, L4 and L5 levels. There are interconnecting rods. The hardware is intact. There are no unexpected radiopaque foreign bodies. IMPRESSION: Fluoroscopy provided for L3-L5 discectomies, decompression and fusion. ACT 112: Negative or not required by law. Electronically signed by: José Oh M.D. 09/13/2019 1:38 PM
--- NOTE | 2019-09-13 15:45 | Hospitalist Progress Note ---
Date of Service September 13, 2019 Assessment & Plan (1) Lumbar disc herniation with radiculopathy: Has been complaining of low back pain with radiculopathy for a while Has had multiple injections without any improvement as an outpatient MRI did show MRI did show discogenic degeneration and annular fissure with surrounding edema with mild to moderate left and right foraminal narrowing Appreciate Ortho input and recommendation for surgery Denies any significant cardiac or respiratory symptoms with exertion EKG and chest x-ray are unremarkable There is no contraindication for surgery and does not carry any extra risk of the procedure Status post lumbar decompression and fusion POD #1 Remains stable and denies any pain radiation of pain Denies any other significant symptoms (2) Hip pain, left: Has radiculopathy pain around left hip No more pain in the left pelvic area at rest (3) Lumbar disc herniation: As above DVT prophylaxis-as per Ortho CODE STATUS Full Medically stable Admission and Anticipated Discharge Date Admission Date: September 12, 2019 Subjective 09/12/2019 The patient was seen and examined in medical floor He has been complaining of chronic back pain with radiculopathy He is a status post multiple injection without any improvement He does have significant disc protrusion and will have surgery tomorrow Denies any urine and her bowel problems 09/13/2019 Patient is seen and examined in medical floor He has had more pain last night and required intravenous medication He is status post lumbar decompression and fusion today Feels better without any radiation of the pain Review of Systems Review of Systems: All systems reviewed and are unremarkable except as noted below Physical Exam Physical Exam: Lying in bed without any acute symptoms Constitutional: well developed and well nourished; no acute distress and not ill appearing Eyes: PERRL, conjunctivae normal, anicteric sclerae ENMT: external ear and nose normal, oropharynx normal Neck: trachea midline, no thyromegaly Respiratory: normal respiratory effort; no respiratory distress Auscultation: lungs clear to auscultation bilaterally Cardiovascular: Rate/Rhythm: regular rate and regular rhythm Heart Sounds: no murmur Gastrointestinal (Abdomen): Inspection/Auscultation: abdomen normal to inspection and normal bowel sounds Percussion/Palpation: abdomen soft; abdomen nontender Musculoskeletal: Back pain without any radiation Neurologic: moves all extremities; no focal motor deficits Lymphatic: no cervical or axillary lymphadenopathy Results & Data Results & Data ([facility]) Vital Signs (Past 12 Hours) Vital Signs Temp Pulse Pulse Resp BP Pulse Ox 09/13/19 15:09 37.1 C 72 18 146/76 H 97 09/13/19 14:09 36.9 C 87 18 133/76 97 09/13/19 13:06 37.1 C 86 18 148/69 H 95 09/13/19 12:36 37.4 C 84 18 128/71 97 09/13/19 11:55 76 15 148/76 H 100 09/13/19 11:45 37.2 C 72 14 145/77 H 100 09/13/19 11:35 74 16 143/76 H 100 09/13/19 11:25 74 13 148/78 H 100 09/13/19 11:15 37.0 C 74 15 120/83 100 09/13/19 11:05 77 18 124/88 100 09/13/19 10:55 80 13 151/81 H 100 09/13/19 10:45 81 20 151/80 H 100 09/13/19 10:37 36.4 C L 89 15 140/79 100 09/13/19 07:07 36.8 C 68 16 147/94 H 100 09/13/19 06:46 36.7 C 70 16 154/81 H 100 Medications Administered Current Inpatient Medications Acetaminophen (Tylenol) 1,000 mg PO Q8H PRN PRN Reason: MILD Pain Scale 1,2,3 & Pre PT Stop: 10/13/19 12:09 Al Hydrox/Mg Hydrox/Simethicone (Maalox) 30 ml PO Q6H PRN PRN Reason: Dyspepsia Stop: 10/13/19 12:09 Bisacodyl (Dulcolax) [address] DAILY PRN PRN Reason: Constipation Stop: 10/13/19 12:09 Diphenhydramine HCl (Benadryl Capsule) 25 mg PO Q6H PRN PRN Reason: Allergic Rhinitis/Insomnia Stop: 10/13/19 12:09 Famotidine (Pepcid) 20 mg PO Q12H PRN PRN Reason: Dyspepsia Stop: 10/13/19 12:09 Gabapentin (Neurontin) 300 mg PO [facility]HS LINDA Stop: 10/12/19 08:59 Last Admin: 09/13/19 12:14 Dose: Not Given Documented by: Hydromorphone HCl (Dilaudid) 0.5 mg IV Q3H PRN PRN Reason: MOD pain (scale 4-6) & Pre PT Stop: 09/27/19 12:09 Hydromorphone HCl (Dilaudid) 1 mg IV Q3H PRN PRN Reason: severe pain (scale 7-10) Stop: 09/27/19 12:09 Hydroxyzine HCl (Vistaril) 25 mg PO Q8H PRN PRN Reason: Anxiety Stop: 10/13/19 12:09 Promethazine HCl 12.5 mg/ (Sodium Chloride) 50.5 mls @ 204 mls/hr IV Q6H PRN PRN Reason: Nausea &/or Vomiting Stop: 10/13/19 12:09 Lorazepam (Ativan) 0.5 mg in 1 mls @ 0.5 mls/min IV Q8H PRN PRN Reason: Sedation/Anxiety Stop: 10/13/19 12:09 Lactated Ringer's (Lr) 1,000 mls @ 100 mls/hr IV .Q10H LINDA Stop: 10/13/19 12:09 Last Admin: 09/13/19 12:42 Dose: 100 mls/hr Documented by: Acetaminophen (Ofirmev) 1,000 mg in 100 mls @ 400 mls/hr IV Q8H PRN PRN Reason: MILD Pain Rating 1,2,3 Stop: 09/14/19 12:09 Cefazolin Sodium (Ancef 2000mg) 2,000 mg in 15 mls @ 3.75 mls/min IV Q8H LINDA; Protocol Stop: 09/14/19 00:03 Influenza Virus Vaccine Quadrival (Flu Vaccine, Do Not Administer) 1 ea N/A PRN PRN PRN Reason: Notification Stop: 10/13/19 12:09 Ketorolac Tromethamine (Toradol) 30 mg IV Q6H LINDA Stop: 09/14/19 08:01 Last Admin: 09/13/19 13:14 Dose: 30 mg Documented by: Lorazepam (Ativan) 0.5 mg PO Q8H PRN PRN Reason: Sedation/Anxiety Stop: 10/13/19 12:09 Magnesium Hydroxide (Milk Of Magnesia) 30 ml PO DAILY PRN PRN Reason: Constipation Stop: 10/13/19 12:09 Metoclopramide HCl (Reglan) 10 mg IV Q6H PRN PRN Reason: Nausea &/or Vomiting Stop: 10/13/19 12:09 Naloxone HCl (Narcan) 0.1 mg IV Q5M PRN; Protocol PRN Reason: Oversedation/Resp Depression Stop: 10/13/19 12:09 Ondansetron HCl (Zofran) 4 mg IV Q6H PRN PRN Reason: Nausea &/or Vomiting Stop: 10/13/19 12:09 Ondansetron HCl (Zofran Odt) 4 mg PO Q6H PRN PRN Reason: Nausea Stop: 10/13/19 12:09 Oxycodone HCl (Roxicodone Immediate Rel) 5 - 10 mg PO Q4H PRN PRN Reason: Moderate-Severe Pain & Pre PT Stop: 09/27/19 12:09 Last Admin: 09/13/19 12:54 Dose: 5 mg Documented by: Pneumococcal Polyvalent Vaccine (Pneumococcal Vacc, Do Not Administer) 1 ea N/A PRN PRN PRN Reason: Notification Stop: 10/13/19 12:09 Polyethylene Glycol (Miralax Powder Packet) 17 gm PO DAILY PRN PRN Reason: Constipation Stop: 10/11/19 22:24 Polyethylene Glycol (Miralax Powder Packet) 17 gm PO Q6 LINDA Stop: 10/14/19 05:59 Senna/Docusate Sodium (Senokot S) 2 tab PO HS LINDA Stop: 10/13/19 20:59 Sodium Biphosphate/Sodium Phosphate (Fleet Enema) [address] ONE PRN PRN Reason: Constipation Stop: 10/13/19 12:09 Tramadol HCl (Ultram) 50 - 100 mg PO Q4H PRN PRN Reason: Moderate-Severe Pain & Pre PT Stop: 10/13/19 12:09
[2019-09-13] MEDS: TRAMADOL HCL 50 MG TABLET PO PRN ×2 (15:53→23:35)
[2019-09-13] MEDS: CEFAZOLIN 2000MG 2,000 MG/15 ML SYR IV SCH ×2 (16:16→23:25)
[2019-09-13] MEDS: ACETAMINOPHEN 500 MG TAB PO PRN (19:36)
[2019-09-13] MEDS ORDERED: PHENAZOPYRIDINE HCL 100 MG TAB PO PRN (19:43)
[2019-09-13] MEDS: DOCUSATE SODIUM/SENNA 50/8.6MG TAB PO SCH (20:43)
[2019-09-13 21:54] LABS: Appearance Urine Clear (Clear); Bilirubin Urine Negative (Negative); Blood Urine Negative (Negative); Color Urine Yellow; Glucose Urine UA Negative (Negative); Ketones Urine Negative (Negative); Leukocyte Esterase Urine Negative (Negative); Nitrite Urine Negative (Negative); Protein Urine Negative (Negative); Specific Gravity Urine 1.011 (1.000-1.030); Urobilinogen Urine Negative (Negative)
[2019-09-14] MEDS: KETOROLAC 30 MG/ML VIAL IV SCH ×2 (01:31→07:52)
[2019-09-14] MEDS: OXYCODONE HCL IR 5 MG TAB (IMMEDIATE RELEASE) PO PRN ×4 (01:31→15:20)
[2019-09-14] MEDS: POLYETHYLENE (MIRALAX) 17 GM PACK PO SCH ×4 (05:41→23:34)
[2019-09-14 06:42] LABS: Basophils # (auto) 0.03 K/uL (0-0.2); Basophils % (auto) 0.3 %; Eosinophils # (auto) 0.07 K/uL (0-0.5); Eosinophils % (auto) 0.6 %; Hematocrit (blood only) 42.1 % (42-52); Hemoglobin 13.8 g/dL (14.0-18.0); Immature Granulocytes # (auto) 0.02 K/uL (0.00-0.02); Immature Granulocytes % (auto) 0.2 %; Lymphocytes # (auto) 2.82 K/uL (1.2-3.4); Lymphocytes % (auto) 23.9 %; Mean Corpuscular Hemoglobin 29.4 pg (25-34); Mean Corpuscular Hgb Conc 32.8 g/dL (32-36); Mean Corpuscular Volume 89.8 fL (80-100); Mean Platelet Volume 9.4 fL (7.4-10.4); Monocytes % (auto) 8.5 %; Neutrophils # (auto) 7.86 K/uL (1.4-6.5); Neutrophils % (auto) 66.5 %; Platelet Count 216 K/uL (130-400); RDW Coefficient of Variation 15.4 % (11.5-14.5); RDW Standard Deviation 50.5 fL (36.4-46.3); Red Blood Count 4.69 M/uL (4.7-6.1)
[2019-09-14 07:19] LABS: BUN Creatinine Ratio 13.3 (10-20); Calcium 8.5 mg/dl (8.5-10.1); Creatinine Clr Calc Pharmacy 68.4 ml/min; Est GFR (African American) 77.3; Est GFR (Non-African American) 66.7; Potassium 3.8 mmol/L (3.5-5.1)
[2019-09-14] MEDS: GABAPENTIN 300 MG CAP PO SCH ×2 (07:55→21:16)
--- NOTE | 2019-09-14 10:20 | Orthopedic Progress Note ---
Date of Service September 14, 2019 Assessment & Plan (1) Lumbar disc herniation: This time we will continue physical therapy monitor his GERARD output anticipate discharge home in the next few days. Present on Admission?: Yes Admission and Anticipated Discharge Date Admission Date: September 12, 2019 Subjective Back pain controlled leg symptoms markedly improved. Physical Exam Physical Exam: On exam he is up and ambulating. His leg pain improved. Results & Data ([facility]) Vital Signs (Past 12 Hours) Vital Signs Temp Pulse Pulse Resp BP Pulse Ox 09/14/19 07:18 36.6 C 77 16 132/85 99 09/14/19 03:35 36.9 C 67 15 117/71 98 09/13/19 23:18 37.1 C 64 14 125/69 97
[2019-09-14] MEDS: TRAMADOL HCL 50 MG TABLET PO PRN ×2 (14:32→21:22)
[2019-09-14] MEDS: HYDROmorphone INJ 1 MG/ML SYRINGE IV PRN ×2 (17:19→20:20)
[2019-09-14] MEDS ORDERED: CYCLOBENZAPRINE HCL 5 MG TAB PO PRN (17:20)
--- NOTE | 2019-09-14 18:49 | Hospitalist Progress Note ---
Date of Service September 14, 2019 Assessment & Plan (1) Lumbar disc herniation with radiculopathy: s/p surgery stable overall from the medical standpoint continue pain control and PT add Flexeril for muscle spasms continue bowel regimen (2) Hip pain, left: Has radiculopathy pain around left hip resolved (3) Lumbar disc herniation: As above Thank you for this consultation. We will follow the patient with you during their hospital stay. You can reach a member of the [facility] Hospitalist Team 17/11 via pager @ [phone]. Admission and Anticipated Discharge Date Admission Date: September 12, 2019 Subjective ff up for s/p back surgery seen resting in bed, comfortable states pain is moderate- relieved by PRN analgesics walking better in the hallways (+) constipation, (+) flatus, no nausea no chest pain, dyspnea, palpitations, dizziness no other symptoms Review of Systems Review of Systems: All systems reviewed & are unremarkable except as noted in HPI & below Physical Exam Physical Exam: General- oriented x 3, not in distress, speaks in sentences with no effort or accessory muscle use Eyes- anicteric Neck- no JVD Lungs- clear breath sounds bilaterally, no rales/wheezes Heart- normal rate, regular rhythm; no murmurs Abdomen- normal bowel sounds, nondistended, soft, nontender Extremities- no pretibial edema, no calf tenderness Back- dressing in place, no bleeding or discharge Neuro- alert, oriented x 3; no gross focal neurologic deficits Skin- warm & dry Results & Data Results & Data ([facility]) Vital Signs (Past 12 Hours) Vital Signs Temp Pulse Pulse Resp BP Pulse Ox 09/14/19 15:33 36.9 C 68 16 153/84 H 95 09/14/19 12:15 36.6 C 57 L 16 134/80 100 09/14/19 11:03 99 09/14/19 07:18 36.6 C 77 16 132/85 99
[2019-09-14] MEDS: DOCUSATE SODIUM/SENNA 50/8.6MG TAB PO SCH (21:16)
[2019-09-14] MEDS: ACETAMINOPHEN 500 MG TAB PO PRN (22:06)
[2019-09-14] MEDS: HYDROmorphone INJ 0.5 MG/0.5 ML SYR IV PRN (23:34)
[2019-09-15] MEDS: HYDROmorphone INJ 0.5 MG/0.5 ML SYR IV PRN ×2 (02:59→06:03)
[2019-09-15] MEDS: POLYETHYLENE (MIRALAX) 17 GM PACK PO SCH ×3 (05:52→18:18)
[2019-09-15] MEDS: OXYCODONE HCL IR 5 MG TAB (IMMEDIATE RELEASE) PO PRN ×4 (07:50→20:06)
[2019-09-15] MEDS: GABAPENTIN 300 MG CAP PO SCH ×2 (08:00→20:04)
[2019-09-15] MEDS: DEXAMETHASONE SOD PHOSPHATE 8 MG in SYRINGE 0 ML IV SCH (08:01)
[2019-09-15] MEDS ORDERED: diazePAM 2 MG TABLET PO ONE (08:36)
--- NOTE | 2019-09-15 08:39 | Orthopedic Progress Note ---
Date of Service September 15, 2019 Assessment & Plan (1) Lumbar disc herniation with radiculopathy: This time we will continue physical therapy try to help with his back spasms and pain. Anticipate possible discharge home tomorrow. Present on Admission?: Yes Admission and Anticipated Discharge Date Admission Date: September 12, 2019 Subjective Patient struggling quite a bit back spasms today. Leg pain still improved. Physical Exam Physical Exam: Patient is up and ambulating good strength testing. Results & Data ([facility]) Vital Signs (Past 12 Hours) Vital Signs Temp Pulse Pulse Resp BP Pulse Ox 09/15/19 07:25 37.2 C 120 H 18 103/67 99 09/14/19 23:21 37.6 C H 81 15 121/67 96 09/14/19 22:03 37.7 C H
[2019-09-15] MEDS: TRAMADOL HCL 50 MG TABLET PO PRN (14:45)
[2019-09-15] MEDS ORDERED: MAGNESIUM HYDROXIDE SUSP 30 ML UDC PO PRN (18:31)
--- NOTE | 2019-09-15 18:31 | Hospitalist Progress Note ---
Date of Service September 15, 2019 Assessment & Plan (1) Lumbar disc herniation with radiculopathy: s/p surgery stable overall from the medical standpoint continue pain control and PT/OT added Flexeril for muscle spasms continue bowel regimen, encouraged to take prune juice, milk of magnesium orde red as well (2) Hip pain, left: Has radiculopathy pain around left hip resolved (3) Lumbar disc herniation: As above Admission and Anticipated Discharge Date Admission Date: September 12, 2019 Subjective Follow-up status post back surgery Seen resting in bed, comfortable, not in distress Significant pain overnight, improved this morning Ambulating with no problems Denies chest pain, shortness of breath, palpitation, dizziness No other symptom Review of Systems Review of Systems: All systems reviewed & are unremarkable except as noted in HPI & below Physical Exam Physical Exam: General- oriented x 3, not in distress, speaks in sentences with no effort or accessory muscle use Eyes- anicteric Neck- no JVD Lungs- clear breath sounds bilaterally Heart- normal rate, regular rhythm; no murmurs Abdomen- normal bowel sounds, nondistended, soft, nontender Extremities- no pretibial edema, no calf tenderness Back-surgical dressing in place, no bleeding or discharge, GERARD drain in place, with minimal serosanguineous output Neuro- alert, oriented x 3; no gross focal neurologic deficits Skin- warm & dry Results & Data Results & Data ([facility]) Vital Signs (Past 12 Hours) Vital Signs Temp Pulse Pulse Resp BP Pulse Ox 09/15/19 15:18 37.4 C 74 16 111/62 97 09/15/19 07:25 37.2 C 120 H 18 103/67 99
[2019-09-15] MEDS: DOCUSATE SODIUM/SENNA 50/8.6MG TAB PO SCH (21:19)
[2019-09-16] MEDS: OXYCODONE HCL IR 5 MG TAB (IMMEDIATE RELEASE) PO PRN ×3 (00:21→08:47)
[2019-09-16] MEDS: diazePAM 2 MG TABLET PO PRN ×2 (02:47→11:45)
[2019-09-16] MEDS: GABAPENTIN 300 MG CAP PO SCH (08:48)
[2019-09-16] MEDS: DEXAMETHASONE SOD PHOSPHATE 8 MG in SYRINGE 0 ML IV SCH (08:49)
--- NOTE | 2019-09-16 10:02 | Discharge Summary ---
Date of Service September 16, 2019 Principal Diagnosis Lumbar spinal stenosis with neurogenic claudication Discharge Data Allergies Allergy/AdvReac Type Severity Reaction Status Date / Time No Known Allergies Allergy Verified 09/13/19 06:47 Consultations 09/11/19 20:52 ED Decision to Admit Stat 09/11/19 22:25 Consult Case Management - Discharge Planning Routine 09/12/19 08:00 Consult Orthopedic Surgery Routine 09/13/19 12:10 Consult Case Management - Discharge Planning Routine Procedures Performed Operation Date: 09/13/19 07:30 Actual Procedures p L3-L4, L4-L5 Decompression and Fusion(Not Applicable) - Naif Quan, Ordered Studies 09/11/19 18:00 MR lumbar spine wo con Stat 09/13/19 07:30 FL fluoroscopy <1hr Routine FL lumbar spine 2-3V Routine Hospital Course (1) Lumbar disc herniation with radiculopathy: Patient was admitted with severe back and leg pain. He was subsequently underwent lumbar decompression and fusion L3-4 L4-5. Tolerates well was taken to orthopedic floor postoperative. Postop day 1 he was up and ambulating progressed to postop day or 2 on postop day #3 GERARD drainage decreased probably. Pain well controlled. Subsequently discharged home. Discharge orders and instructions found the chart for further review. Total Time Total Time Spent Total Time Spent (In Minutes): 20 minutes Discharge Plan Discharge Items Patient Disposition: Home - Self-Care Reason For Visit: SEVERE BACK PAIN Discharge Diagnosis: Lumbar spinal stenosis with neurogenic claudication Spondylolisthesis with far lateral disc herniation Condition on Discharge: Good Activity: As commented below Non-emergency contact: Primary Care Provider Call non-emergency contact if: you have any medication questions Follow-up/Referrals: Linda Johnson MD [Primary Care Provider] - Diet: Regular Addtl Attending Provider Instructions: ACTIVITY RECOMMENDATIONS: SELF CARE INSTRUCTIONS AFTER THORACIC/LUMBAR FUSIONS 1. You may walk to your tolerance. It is good exercise for your legs and back. Expect some back and intermittent leg aches and pains. 2. You may perform "counter-top" level activities (make a sandwich, fany with a project, etc.). 3. No bending or lifting of more than 10 pounds or back twisting of any nature (roll like a log when turning in bed). 4. You may ride in a car for 20-30 minutes at a time. No driving until after your first visit with your doctor. 5. Frequent changes of position and restricting sitting to 30 minutes at a time will help limit the amount of back spasms and stiffness you may experience. 6. You may discontinue the use of ambulatory aids (cane, crutches, etc.) once your strength and confidence allow. 7. You may packing line operator the shower and let water strike your incision when you arrive home at least once daily. Do not take a tub bath, sit in a hot tub or go into a swimming pool until after your first recheck in the office. SPECIAL CARE INSTRUCTIONS: VERY IMPORTANT TO READ AND REVIEW A. Your surgical incision has been closed with a cosmetic suture under the skin that will dissolve in about 6 weeks. In 14 days, you can use a pair of clean scissors and cut the suture that is left outside of the skin at the ends of your incision. 1. The small skin tapes can be removed 7 days after surgery if they have not fallen off by that point. 2. You may keep the wound open to air as much as possible to promote healing after post-op day number 5 unless told otherwise by your doctor. 3. If you think the wound looks like it is becoming infected (redness or worsening drainage) and/or you are experiencing fever, chill or worsening back pain and muscle spasms, contact the office so that we may evaluate you as soon as possible. B. Complications are uncommon, but please contact us if you have any signs or symptoms of: 1. wound infection (fever higher than 102.5 degrees F, redness, separation of wound, drainage, or increasing pain from the incision) 2. blood clots in legs (pain, swelling, redness and warmth in legs) 3. urinary tract infection (fever higher than 102.5 degrees F, burning upon urination or increased frequency of urination) 4. nerve problems (inability to walk on your toes or heels, numbness, loss of bowel or bladder control) 5. any other symptoms that concern you C. Please call the office at if you have any concerns or questions about your operation or recovery. D. No smoking! Smoking drastically decreases the chance of a solid fusion. E. Do not take any anti-inflammatory medications (Indocin, Advil, Motrin, Aspirin, Naprosyn, etc.) as these may inhibit the chance of a solid fusion. Tylenol is okay to take for pain. MANAGING PAIN AFTER SPINAL SURGERY 1. Narcotic medication is intended for short-term use and will be provided for surgical pain. Surgical pain usually lasts for a period of 4-6 weeks. Narcotic medication includes Percocet, Vicodin, Darvocet, Tylenol #3 or Lortab. 2. Longer-term pain is more appropriately treated with non-narcotic medication such as Tylenol ES. 3. Muscle spasm is not appropriately treated with narcotics. Muscle relaxers such as Soma, Flexeril or Skelaxin can be used along with Tylenol ES. 4. Remember that we all live with some "aches and pains". This is not unusual or uncommon after an injury or as we get older. a. Back pain is expected and may include muscle spasms for 4 to 6 weeks after surgery. The pain should gradually improve. If the pain worsens for no apparent reason, please contact the office. b. Intermittent leg pain may also be experienced and should not be concerned about unless it worsens for no apparent reason. If so, please contact the office. 5. We will provide appropriate medication within the normal guidelines of their prescribed use. We will also be very cautious and aware of potential abuse and extended duration of patients' medication needs. a. Pain medications are for your comfort and to assist with sleep and rest so that the tissue can heal. They are not provided in order to return to normal activity and should not be used through the day. To do so or worsening pain at night can result from ongoing tissue damage and development of tolerance to the prescribed medicine. 6. Please allow 2-3 days to process refills. Prescriptions will not be mailed but must be picked up at the office. FOLLOW UP VISIT: Keep your scheduled follow-up appointment. Any questions, please call the office at . Pending Studies at Discharge: No Stand-Alone Forms: My [employer], Smoking Cessation Medications and DC Order Prescriptions: New tramadol 50 mg tablet 50 mg PO Q6H PRN (Reason: pain, moderate) Qty: 30 RF: 0 oxycodone 5 mg tablet 5 mg PO Q6H PRN (Reason: pain, severe) Qty: 20 RF: 0 Continued gabapentin 100 mg capsule 300 mg PO AMHS RF: 0 Discharge Orders: Discharge Order (Routine); Ordered 09/16/19 Ordered By: Naif Quan Admission Data Admit Date/Time: 09/12/19 13:49 Attending Provider: Efrem Greco Admit Provider: Ambrosio Garcia Primary Care Provider: Linda Johnson Other Providers: Ambrosio Garcia ; Naif Quan ; Jayson Soto Other Interventions: Discharge Summary Assessment (RN) Last Done: 09/16/19 09:41
[2019-09-16] MEDS: TRAMADOL HCL 50 MG TABLET PO PRN (11:45)
--- NOTE | 2019-09-16 20:12 | Hospitalist Progress Note ---
Date of Service September 16, 2019 Assessment & Plan (1) Lumbar disc herniation with radiculopathy: s/p surgery Stable Advised to continue prune juice and PRN laxative at home (2) Hip pain, left: Has radiculopathy pain around left hip resolved (3) Lumbar disc herniation: As above Admission and Anticipated Discharge Date Admission Date: September 12, 2019 Subjective Follow-up status post back surgery Seen and resting, not in distress Good spirits States back pain is much better Denies any other symptoms Review of Systems Review of Systems: All systems reviewed & are unremarkable except as noted in HPI & below Physical Exam Physical Exam: General- oriented x 3, not in distress, speaks in sentences with no effort or accessory muscle use Eyes- anicteric Neck- no JVD Lungs- clear breath sounds bilaterally Heart- normal rate, regular rhythm; no murmurs Abdomen- normal bowel sounds, nondistended, soft, nontender Extremities- no pretibial edema, no calf tenderness Neuro- alert, oriented x 3; no gross focal neurologic deficits Skin- warm & dry Results & Data Results & Data ([facility]) Vital Signs (Past 12 Hours) Vital Signs Temp Pulse Pulse Resp BP Pulse Ox 09/16/19 09:41 36.7 C 120 H 79 16 124/87 98
== END 2019-09-16 12:32 | disposition home or self-care (01) | DRG 455 ==
LOC: 3E 17:29 → ED 17:29 → 3E 22:14 → SUATTDRO 09-12 13:49
DX: M48.061 Spinal stenosis, lumbar region without neurogenic claudication